=== PATIENT | female | born 1975 | race Two or more races ===

== ENCOUNTER 2019-06-12 08:30 | Inpatient (IN) | payer MEDICAID ==
[2019-06-04 13:07] LABS: ANION GAP 4 mmol/L (5-15); BLOOD UREA NITROGEN 15 mg/dL (7-18); CALCIUM 9.9 MG/DL (8.5-10.1); CARBON DIOXIDE 32 MMOL/L (21-32); CHLORIDE 101 MMOL/L (98-107); CREATININE 0.8 MG/DL (0.55-1.30); POTASSIUM 4.6 MMOL/L (3.5-5.1); SODIUM 137 MMOL/L (136-145)
[2019-06-04 13:11] LABS: BASOPHILS % (AUTO) 0.8 % (0.0-2.0); EOSINOPHILS % (AUTO) 0.7 % (0.0-3.0); MEAN CORPUSCULAR VOLUME 95 FL (80-99); MONOCYTES % (AUTO) 5.4 % (1.0-10.0); NEUTROPHILS % (AUTO) 69.2 % (45.0-75.0); PLATELET COUNT 308 K/UL (150-450); RED BLOOD COUNT 4.44 M/UL (4.20-5.40); RED CELL DISTRIBUTION WIDTH 11.9 % (11.6-14.8); WHITE BLOOD COUNT 6.1 K/UL (4.8-10.8)
[2019-06-04 13:12] LABS: APPEARANCE,URINE CLEAR; BILIRUBIN, URINE NEGATIVE (NEGATIVE); COLOR,URINE PALE YELLOW; GLUCOSE, URINE (UA) 4+ (NEGATIVE); KETONES,URINE NEGATIVE (NEGATIVE); LEUKOCYTE ESTERASE ,URINE NEGATIVE (NEGATIVE); NITRITE,URINE NEGATIVE (NEGATIVE); PH,URINE 6.5 (4.5-8.0); PROTEIN,URINE NEGATIVE (NEGATIVE); UROBILINOGEN,URINE NORMAL MG/DL (0.0-1.0)
--- NOTE | 2019-06-04 14:23 | Diagnostic Imaging Report ---
Indication: Cough Technique: 2 views of the chest Comparison: None Findings: There is a right chest port catheter in place. Lungs pleural spaces are clear. The heart size is normal. Impression: No acute process
--- NOTE | 2019-06-07 16:00 | Pre-op HX & Phy Repo 2 SIG ---
SCHEDULED FOR SURGERY: 06/12/2019. HISTORY OF PRESENT ILLNESS: The patient is a 44-year-old female in overall stable health with invasive ductal carcinoma of the left breast, metastatic to left axillary lymph node. The patient presented in October 2018 with a 3 cm left breast mass at 10 o'clock 9 cm from the nipple near the periphery of the left breast. Core biopsy revealed invasive ductal carcinoma and ductal carcinoma in situ. Core biopsy of enlarged left axillary lymph node revealed metastatic cancer. The tumor is estrogen and progesterone receptor positive, HER2 negative. The patient has been treated with neoadjuvant chemotherapy with last treatment 05/10/2019. She has had a good response. She is now scheduled to undergo left breast partial mastectomy and left axillary lymph node dissection. MEDICATIONS: Metformin and benazepril. ALLERGIES: None. OPERATIONS: Removal of 3 cysts in the left breast in the year 1999, section x1. REVIEW OF SYSTEMS: She is 2, para 2. She has regular menstrual periods. FAMILY HISTORY: She has no family history of breast cancer. PHYSICAL EXAMINATION: VITAL SIGNS: The patient is 5 feet 2 inches, 129 pounds. Vital signs within normal limits. HEENT: Within normal limits. LUNGS: Clear. HEART: Regular rhythm. BREASTS: Moderately large. The right breast is unremarkable. The left breast has a 2 cm soft mass. Previously noted was a 3 cm hard partially fixed mass in the periphery of the upper inner quadrant between 10 and 12 o'clock. There is slightly increased left axillary lymph nodes. No supraclavicular lymphadenopathy. Right breast is unremarkable. ABDOMEN: Soft. PELVIC: Per primary care. RECTAL: Per primary care. EXTREMITIES: Without edema. NEUROLOGIC: Physiologic. IMPRESSION: Invasive ductal carcinoma and ductal carcinoma of the left breast, metastatic to the left axillary lymph nodes, status post neoadjuvant chemotherapy. PLAN: Left breast partial mastectomy and left axillary lymph node dissection I have had a full discussion with the patient regarding the nature of the condition, the nature of the surgery, indications, alternatives, options, and risks including bleeding, infection, scarring or distortion of breast or nipple, need for additional treatments including additional surgery based on final pathology, radiation chemotherapy, hormonal blockade, and other treatments. All questions have been answered. The patient understands and agrees to proceed. Trevor Fontenot M.D. DR: DAVID JOB#: [id number] CC: ARISTEO
--- NOTE | 2019-06-08 15:05 | Cardiology Report ---
APPROVED REPORT EKG Measurement Heart [id number] Normal sinus rhythm Normal ECG
[2019-06-12] VITALS (11 sets, daily range): BP systolic 92–121; BP diastolic 52–78
[~2019-06-12] VITALS: Ht 157.5 cm; Wt 67.7 kg
[2019-06-12] MEDS ORDERED: METFORMIN HCL500 M1 ORAL (09:14)
[2019-06-12] MEDS ORDERED: BENAZEPRIL HCL10 MG ORAL (09:14)
[2019-06-12] MEDS ORDERED: Lidocaine 1% MPF 10mg/ml 5ml ONE (10:33)
[2019-06-12] MEDS ORDERED: Midazolam 2mg/2ml Inj ONE (10:33)
[2019-06-12] MEDS ORDERED: fentaNYL 100 mcg/2 mL ONE (10:33)
[2019-06-12] MEDS ORDERED: Propofol 200mg/20ml IV ONE (10:33)
[2019-06-12] MEDS ORDERED: Ketorolac 30mg Inj ONE (10:33)
[2019-06-12] MEDS ORDERED: Succinylcholine 20mg/ml 10ml vial ONE (10:50)
[2019-06-12] MEDS ORDERED: Rocuronium Bromide 50mg/5ml Inj IV ONE (10:50)
--- NOTE | 2019-06-12 11:06 | Pre-Procedure Note/Attestation ---
Pre-Procedure Note/Attestation Complete Prior to Procedure Planned Procedure: left Procedure Narrative: left breast partial mastectomy and left axillary lymph node dissection Indications for Procedure Pre-Operative Diagnosis: invasive ductal carcinoma left breast metastatic to axillary lymph nodes Attestation I attest that I discussed the nature of the procedure; its benefits; risks and complications; and alternatives (and the risks and benefits of such alternatives ), prior to the procedure, with the patient (or the patient's legal inside sales account representative). I attest that, if there was a reasonable possibility of needing a blood transfusion, the patient (or the patient's legal inside sales account representative) was given the [facility] standardized written summary, pursuant to the Jaime Ines Blood Safety Act ([place] Health and Safety Code # 1645, as amended). I attest that I re-evaluated the patient just prior to the surgery and that there has been no change in the patient's H&P, except as documented below: none Trevor Fontenot MD Jun 12, 2019 11:06
[2019-06-12] MEDS ORDERED: Insulin Human Regular 100units/ml 3ml ONE (11:26)
[2019-06-12] MEDS ORDERED: Sterile Water Irrig 1000ml IRRIG ONE ×2 (11:30)
[2019-06-12] MEDS ORDERED: LR 1000ml ONE (11:30)
[2019-06-12] MEDS ORDERED: Insulin Human Regular 100units/ml 3ml IV SCH (12:15)
[2019-06-12] MEDS ORDERED: LR 1000ml 1,000 ML IVLG SCH (12:16)
--- NOTE | 2019-06-12 12:16 | Anethesia Preoperative Eval ---
Anesthesia Pre-op PMH/ROS General Date of Evaluation: Jun 12, 2019 Time of Evaluation: 11:10 Anesthesiologist: Arnulfo ASA Score: ASA 3 Mallampati Score Class I : Soft palate, uvula, fauces, pillars visible Class II: Soft palate, uvula, fauces visible Class III: Soft palate, base of uvula visible Class IV: Only hard plate visible Mallampati Classification: Class II Surgeon: Corie Diagnosis: L breast CA Surgical Procedure: Partial mastectomy Anesthesia History: none Family History: no anesthesia problems Allergies: Coded Allergies: No Known Allergies (Unverified , 06/12/19) Medications: see eMAR Patient NPO?: Yes NPO Date: Jun 11, 2019 NPO Time: 1999 Past Medical History Cardiovascular: Reports: HTN; Denies: CAD, MT, valve dz, arrhythmia, other Pulmonary: Denies: asthma, COPD, JOHN [place], other Gastrointestinal/Genitourinary: Reports: GERD; Denies: CRI, ESRD, other Neurologic/Psychiatric: Reports: depression/anxiety; Denies: dementia, CVA, TIA, other Endocrine: Reports: DM - poorly controled; Denies: hypothyroidism, steroids, other HEENT: Denies: cataract (L), cataract (R), glaucoma, [place] (L), [place] (R), other Hematology/Immune: Reports: anemia - mild; Denies: DVT, bleeding disorder, other Musculoskeletal/Integumentary: Denies: OA, RA, DJD, DDD, edema, other PMH Narrative: as above PSxH Narrative: L breast cyst removal infusaport placement Anesthesia Pre-op Phys. Exam Physician Exam Last Vital Signs Date Time Temp Pulse Resp B/P (MAP) Pulse Ox O2 Delivery O2 Flow Rate FiO2 06/12/19 09:05 Room Air 06/12/19 08:56 98.0 87 18 121/78 (92) 99 Constitutional: NAD Neurologic: CN 2-12 intact Cardiovascular: RRR, no M/R/G Respiratory: CTA Gastrointestinal: S/NT/ND Airway Exam Mallampati Score: Class II MO: full Neck: flexible ROM: full Teeth: intact Dentures: no upper, no lower Anesthesia Pre-op A/P Labs see chart Urine Test Test 06/12/19 08:40 Urine HCG, Qualitative Negative (NEGATIVE) Studies Pre-op Studies: EKG - NSR Risk Assessment & Plan Assessment: ASA 3 Plan: GA with ETT PONV prevention Status Change Before Surgery: No Pre-Antibiotics Drug: Ancef 1gr Given Within 1 Hr of Incision: Yes Time Given: 11:50 James Arredondo MD Jun 12, 2019 12:16
[2019-06-12] MEDS ORDERED: Morphine Sulfate 10mg/ml Inj ONE (12:19)
[2019-06-12] MEDS ORDERED: Glycopyrrolate 0.2mg/ml 1ml Vial ONE (12:19)
[2019-06-12] MEDS ORDERED: Sodium Chloride 10ml vial INJ ONE (12:19)
[2019-06-12] MEDS ORDERED: Meperidine 50mg/ml Inj(FOR RIGORS ONLY) IV PRN (12:30)
[2019-06-12] MEDS ORDERED: Ketorolac 30mg Inj IV PRN (12:30)
[2019-06-12] MEDS ORDERED: Metoclopramide 10mg/2ml Inj IVP PRN (12:30)
[2019-06-12] MEDS ORDERED: DiphenhydrAMINE 50mg/ml Inj IVP PRN (12:30)
--- NOTE | 2019-06-12 13:27 | Brief Operative Note ---
Immediate Post Operative Note Operative Note Pre-op Diagnosis: invasive ductal carcinoma left breast metastatic to axillary lymph nodes Procedure: left breast partial mastectomy and left axillary lymph node dissection Post-op Diagnosis: same Post-op Diagnosis: same as pre-op Findings: consistent w/pre-op dx studies Surgeon: jackson Senior Tax Accountant: ynes Anesthesiologist: alfred Anesthesia: general Specimen: yes - left breast tissue and left axillary lymph nodes Complications: none Condition: stable Fluids: see anesthesia record Estimated Blood Loss: minimal Drains: JESSI Implant(s) used?: No Trevor Fontenot MD Jun 12, 2019 13:27
[2019-06-12] MEDS ORDERED: HYDROmorphone 1mg/ml Carpuject SUBQ PRN (13:30)
--- NOTE | 2019-06-12 13:34 | Immediate Post-Op Evaluation ---
Immediate Post-Op Evalulation Immediate Post-Op Evalulation Procedure: L breast partial mastectomy with axillary l/n dissection Date of Evaluation: Jun 12, 2019 Time of Evaluation: 13:33 IV Fluids: 1000 Blood Products: none Estimated Blood Loss: <50 Urinary Output: none Blood Pressure Systolic: 102 Blood Pressure Diastolic: 56 Pulse Rate: 72 Respiratory Rate: 16 O2 Sat by Pulse Oximetry: 99 Temperature (Fahrenheit): 97.6 Pain Score (1-10): 1 Nausea: No Vomiting: No Complications none Patient Status: reacts, patent, extubated, none Hydration Status: adequate James Arredondo MD Jun 12, 2019 13:34
--- NOTE | 2019-06-12 15:15 | NUR ---
NURSE NOTES: Pt arrived from surgery to left breast and axillary region. Pt drowsy but is able to answer questions. Breathing with NS at 3 liters , scds on and functioning,. Lung sounds clear, s1 s2 audible upon auscultation. Surgery bra on , bandage clean and intact. JESSI has no output in bulb. Scant amount of sanguinous output in tubing. Bowel sounds hypoactive in all quadrants. Able to move bilateral lower extremities.Has sensation to touch . Repositioned to left side bilateral feet elevated.
[2019-06-12] MEDS: 1/2NS w/KCl 20mEq 1000ml 1,000 ML IV SCH (16:19)
--- NOTE | 2019-06-12 18:08 | NUR ---
NURSE NOTES: Pt and son remain at bedside , pt states she had an episode of vomitus after drinking water . Pt asked what vomitus looked like stated in Japanese ;" purely water" Refused the meal requested to keep the soup for later consumption. IV remains patent , at this time. Has not urinated since she has been on the floor , per report voided before surgery
[2019-06-12] MEDS: metFORMIN 500mg tab ORAL SCH (18:29)
--- NOTE | 2019-06-12 18:50 | NUR ---
NURSE NOTES: Zofran 4mg via iv push given for verbalizations of nausea will reassess
--- NOTE | 2019-06-12 19:40 | NUR ---
HAND-OFF: Report given to Current v/s are 107/69 pulse 89, oxygen removed pt desatutared to 92 % , O2 placed on pt, endorsed not to obatin bp on left arm. IS will be encouraged
[2019-06-12] MEDS: ceFAZolin sod 1 GM in D5W 55 ML IV SCH (20:09)
--- NOTE | 2019-06-12 21:52 | NUR ---
NURSE NOTE: Pt is A/Ox4 with stable VS. Orders reviewed and physical assessment completed. Pt instructed on proper usage of IS, achieved 500mL. Will provide JESSI instruction in AM. Pt denies any pain. Waiting for patient to void. 2300 will be 8 hours without voiding. Will notify MD if patient doesnt void by 2300. Will continue to monitor.
[2019-06-12] MEDS: HYDROcodone/Acetamin 5/325 tab ORAL PRN (22:13)
--- NOTE | 2019-06-12 22:30 | Operative Note - Dictated ---
DATE OF OPERATION: 06/12/2019 SURGEON: Trevor Fontenot M.D. KNIFE GRINDER: None. ANESTHESIOLOGIST: James Arredondo M.D. TYPE OF ANESTHESIA: General. PREOPERATIVE DIAGNOSIS: Invasive ductal carcinoma, left breast, metastatic to left axillary lymph nodes, status post neoadjuvant chemotherapy. POSTOPERATIVE DIAGNOSIS: Invasive ductal carcinoma, left breast, metastatic to left axillary lymph nodes, status post neoadjuvant chemotherapy. OPERATION PERFORMED: Left breast partial mastectomy and left axillary lymph node dissection. DESCRIPTION OF PROCEDURE: The patient was taken to the operating room and under general anesthesia with sequential compression device stockings in place, she was prepped and draped in usual fashion. The mass was located at 10 o'clock at the very periphery of the left breast upper inner quadrant. Initially, she presented with a hard mass somewhat fixed to the chest wall, but it became much more indistinct and soft following the chemotherapy. A curvilinear incision was made achieving hemostasis with cautery and flaps were dissected circumferentially. The thickened tissue in the appropriate area was resected with a margin of normal tissue including the pectoralis fascia. The specimen was oriented with sutures located anterior, superior, and medial and given to pathology who could not find an obvious tumor mass likely due to the chemotherapy effect. Hemostasis was carefully achieved with cautery. The wound irrigated with sterile water. The incision was closed with interrupted 3-0 Vicryl deep dermal subcutaneous sutures followed by ella. Left axillary incision was made achieving hemostasis with cautery and incising the clavipectoral fascia. A lower level dissection was performed using the Thunderbeat electrosurgical device with at least 1 obvious enlarged abnormal lymph node and several smaller nodes. The field was copiously irrigated and hemostasis was secure. Through a separate stab incision inferiorly, a large flat John-Espinoza drain was placed into the axilla and sutured to the skin with 2-0 nylon suture. The axillary incision was closed by closing clavipectoral fascia with interrupted 3-0 Vicryl, subcutaneous tissues with interrupted 3-0 Vicryl, and skin with continuous 4-0 Monocryl subcuticular suture. Mastisol and half-inch Steri-Strips were applied to both incisions followed by dry sterile dressings. Final sponge and needle counts were correct. The patient tolerated the procedure well and left the operating room in good condition. Trevor Fontenot M.D. DR: DAVID JOB#: [id number] CC: ARISTEO
[2019-06-13 00:09] VITALS: BP 105/66
[2019-06-13] MEDS: 1/2NS w/KCl 20mEq 1000ml 1,000 ML IV SCH (00:52)
[2019-06-13] MEDS: ceFAZolin sod 1 GM in D5W 55 ML IV SCH (03:51)
[2019-06-13 04:15] VITALS: BP 114/71
--- NOTE | 2019-06-13 07:08 | NUR ---
HAND-OFF: Report given to Neva.
--- NOTE | 2019-06-13 07:30 | NUR ---
NURSE NOTES: Received report from Irasema SILVA. Patient is awake and oriented, no acute distress noted, reporting no pain at this time. JESSI drain compressed per order, draining serosanguinous output. Surgical site dressing clean, dry, surgical bra in place. IVF running per order. SCD's in place. Updated on plan of care for the day. Side rails upx2, bed low and locked, call light in reach. Will continue to monitor.
[2019-06-13 08:00] VITALS: BP_SYST 119; BP_SYST 120; BP_DIAS 71; BP_DIAS 80
--- NOTE | 2019-06-13 08:10 | General Progress Note ---
Progress Note Progress Note AVSS Had emesis last night and no po intake - remains on IV fluids Pain controlled with [place] Left breast and axilla incisions clean and dry with intact steristrips JESSI 10cc sanguinous Imp. Post-op emesis - resolved Plan: d/c IV fluids if tolerates po intake teach patient care of JESSI drain continue in-patient status ambulate Trevor Fontenot MD Jun 13, 2019 08:10
[2019-06-13] MEDS: Benazepril 10mg tab ORAL SCH (09:52)
[2019-06-13] MEDS: metFORMIN 500mg tab ORAL SCH ×2 (09:52→17:27)
--- NOTE | 2019-06-13 11:07 | 48 Hour Post Anesthesia Eval ---
Post Anesthesia Evaluation Procedure: L breast partial mastectomy with axillary l/n dissection Date of Evaluation: Jun 13, 2019 Airway: patent Nausea: No Vomiting: No Hydration Status: adequate Cardiopulmonary Status: at baseline Mental Status/LOC: patient returned to baseline Post-Anesthesia Complications: 0 Follow-up care needed: N/A - further caree as per Dee Reeves MD Jun 13, 2019 11:07
[2019-06-13 12:00] VITALS: BP 124/74
[2019-06-13] MEDS: HYDROcodone/Acetamin 5/325 tab ORAL PRN (12:49)
--- NOTE | 2019-06-13 14:11 | NUR ---
Fruit Canner Initial Review 44Y/O [facility] CC: Left Breast Cancer SI: S/P Left Breast Partial Mastectomy and Left Axillary Lymph Node Dissection 06/12/19 BP:124/74 HR:74 RR:16 02 Sat:97% T:97.9 IS: Johnson PO Glucophage PO Lotensin PO Zofran IV M/S Status DCP: Home once Medically Stable
[2019-06-13 16:00] VITALS: BP 100/72
--- NOTE | 2019-06-13 18:00 | NUR ---
NURSE NOTES: Total output from JESSI for shift: 20mL, patient instructed on how to empty JESSI and instructed on drain care. Eating well, no nausea reported, [place] given once.
--- NOTE | 2019-06-13 19:15 | NUR ---
HAND-OFF: Report given to Irasema SILVA.
[2019-06-13 19:59] VITALS: BP 113/76
--- NOTE | 2019-06-13 20:06 | NUR ---
NURSE NOTE: Pt is A/Ox4 with stable VS. Family is at the bedside. Orders reviewed and physical assessment completed. Pt to empty JESSI drain with RN supervision, pt verbalized understanding. Pt reminded to use IS every hour when awake. Call pelaez is within reach. Will continue to monitor.
[2019-06-14 00:12] VITALS: BP 139/78
[2019-06-14 03:49] VITALS: BP 114/69
--- NOTE | 2019-06-14 07:10 | NUR ---
HAND-OFF: Report given to
[2019-06-14 08:00] VITALS: BP 111/72
--- NOTE | 2019-06-14 08:00 | NUR ---
NURSE NOTES: Received report from Irasema SILVA. pt a/a/o x4 seating in bed with no signs of distress or other issues at this time. IV on the right hand gauge#20 heplock. surgical dressing c/d/i. JESSI on the left breast draining well per report drainage out out: 10ml. RN reinforced teaching. call light within reach, bed in lowest position. side rales up x2. I will f/u as needed. plan to d/c home today.
--- NOTE | 2019-06-14 08:13 | General Progress Note ---
Progress Note Progress Note AVSS Not much pain after yesterday evening. Ambulating and tolerating po intake left breast and axilla incisions clean and dry JESSI 30cc serosan IMp. Improved Plan: discharge Rx [place] #30 f/u office 06/19 instructions/supplies discussed/provided Trevor Fontenot MD Jun 14, 2019 08:13
[2019-06-14 08:48] VITALS: BP 111/72
[2019-06-14] MEDS: Benazepril 10mg tab ORAL SCH (08:48)
[2019-06-14] MEDS: metFORMIN 500mg tab ORAL SCH (08:48)
[2019-06-14] MEDS: HYDROcodone/Acetamin 5/325 tab ORAL PRN (08:49)
[2019-06-14] MEDS ORDERED: NORCO 5-325 TA1 EACH ORAL (09:10)
[2019-06-14] MEDS ORDERED: Tubing IV Secondary IV ONE (10:57)
--- NOTE | 2019-06-14 11:11 | NUR ---
NURSE NOTES: received d/c order. Discharge instructions and belongings given to patient and pts . Also given supplies for dressing change. RN reinforced JESSI drain teaching. prescription for [place] 5/325mg Q4H #30 faxed to [facility] and delivered medication to patients room prior to d/c. IV removed prior to d/c. patient left the floor with no signs of distress or other issues at this time. will provide transportation. I will f/u as needed.
--- NOTE | 2019-06-15 11:35 | Discharge Summary ---
Discharge Summary Hospital Course Date of Admission Jun 12, 2019 at 15:20 Date of Discharge Jun 14, 2019 at 11:10 Admitting Diagnosis invasive ductal carcinoma left breast Reason for Hospitalization: elective surgery HPI Isatu Covington is a 44 year old female who was admitted on Jun 12, 2019 at 15:20 for invasive ductal carcinoma, left breast, metastatic to left axillary lymph nodes, status post neoadjuvant chemotherapy. Patient was admitted for elective surgery. 44-year-old female in overall stable health with invasive ductal carcinoma of the left breast, metastatic to left axillary lymph node. The patient presented in October 2018 with a 3 cm left breast mass at 10 o' clock 9 cm from the nipple near the periphery of the left breast. Core biopsy revealed invasive ductal carcinoma and ductal carcinoma in situ. Core biopsy of enlarged left axillary lymph node revealed metastatic cancer. The tumor is estrogen and progesterone receptor positive, HER2 negative. The patient had been treated with neoadjuvant chemotherapy with last treatment 05/10/2019. She has had a good response. She was scheduled to undergo left breast partial mastectomy and left axillary lymph node dissection. Procedures s/p 06/12/[address] Fontenot Left breast partial mastectomy and left axillary lymph node dissection. Hospital Course status post surgery course of recovery uneventful initially IV fluids s/p perioperative antibiotics hemodynamically stable Left breast and axilla incisions clean and dry with intact steristrips JESSI output closely monitored pain management addressed; pain controlled use of incentive spirometry was encouraged while in the bed initially postoperative emesis, controlled with antiemetic and resolved, tolerated diet , IV fluids discontinued GI prophylaxis provided blood pressure was managed with Lisinopril e and remained stable blood sugar was closely monitored and managed with Metformin ambulated voided freely bowel regimen instituted patient was taught how to care for JESSI drain at home prescription for [place] 5/325 #30 provided patient was stable for discharge home patient to fup in clinic 06/19 dc instructions/supplies discussed/provided FINAL DIAGNOSES 1. Invasive ductal carcinoma, left breast, metastatic to left axillary lymph nodes, status post neoadjuvant chemotherapy. 2. s/p Left breast partial mastectomy and left axillary lymph node dissection 3. HTN 4. Diabetes mellitus Discharge Medications Continued Medications: Benazepril Hcl* (Benazepril Hcl*) 10 Mg Tablet 5 MG ORAL DAILY, TAB (This prescription has been renewed) Hydrocodone Bit/Acetaminophen 5-325* ([place] 5-325*) 1 Each Tablet 1 TAB ORAL Q4H PRN for For Pain, #30 TAB 0 Refills (This prescription has been renewed) Metformin Hcl* (Metformin Hcl*) 500 Mg Tablet 500 MG ORAL TWICE A DAY, TAB (This prescription has been renewed) Discharge Condition Upon Discharge: stable Discharge Disposition Patient was discharged home Discharge Instructions Discharge Instructions Special Instructions I have been assigned to complete a D/C Summary on this account. I was not involved in the patient management Yamilet Land NP Jun 15, 2019 11:35
== END 2019-06-14 11:10 | disposition home or self-care (01) | DRG 363 ==
LOC: SUR 08:30 → 3E 15:20
PROC: 07T60ZZ Resection of Left Axillary Lymphatic, Open Approach (ICD-10-PCS; 2019-06-12)
PROC: 0HBU0ZZ Excision of Left Breast, Open Approach (ICD-10-PCS; principal; 2019-06-12 11:30)
DX: C50.212 Malignant neoplasm of upper-inner quadrant of left female breast (principal); C77.3 Secondary and unspecified malignant neoplasm of axilla and upper limb lymph nodes; Z17.0 Estrogen receptor positive status [ER+]; Z79.84 Long term (current) use of oral hypoglycemic drugs
CPT/HCPCS: 36415; 71046; 80048; 81001; 81025; 82962; 85025; 85610; 85730; 87081; 93005; 94003; 94150; J2250; J2405